=== PATIENT | female | born 1965 | race Caucasian/White ===

== ENCOUNTER 2024-07-13 19:42 | Emergency (ER) | payer OTHER, SELFPAY ==
--- NOTE | 2024-07-13 19:42 | ED_ITS ---
<Statement entered by Dora Quispe DO - 07/13/24 23:37> I was consulted by the TEETEE, and we discussed the complexity of the problems being addressed. I approved the treatment and management plan for this patient's care in the emergency department, thus performing a substantive portion of the medical decision making. Dora Quispe DO Discharge Plan Disposition Patient Disposition: Home, Self-Care Condition: Good Prescriptions Prescriptions: New ketorolac 10 mg tablet 10 mg PO Q8H PRN (Reason: pain) 2 Days Qty: 10 0RF ondansetron 4 mg tablet,disintegrating 4 mg PO QID PRN (Reason: nausea and vomiting) Qty: 10 0RF oxycodone 5 mg tablet 5 mg PO Q8H PRN (Reason: pain) Qty: 12 0RF Activity Restrictions/Add. Instructions Additional Instructions/Restrictions: As we discussed please call your urologist in the morning to establish follow- up. If you have any worsening signs or symptoms return to the emergency department that has interventional urology as we discussed. I have sent prescriptions in to your pharmacy in [place] that will be able to be picked up in the morning. Clinical Impressions Clinical Impression: Ureterolithiasis Instructions Patient Instructions: DI for Kidney Stones Print Language Print Language: Danish Discharge ED Provider: Dora Quispe General Adult HPI <DARLENE Quinn - Last Filed: 07/13/24 21:35> General Chief complaint: Abdominal Pain Stated complaint: abdominal pain Time Seen by Provider: 07/13/24 19:46 History of Present Illness HPI narrative: Patient presents for evaluation of acute right flank pain. Patient has a known history of kidney stones however she was on her way to work this evening and had to order puller twice due to nausea secondary to right flank pain. She was unable to continue her trip and ultimately had to call EMS due to her pain. She denies any fever chills hemoptysis hematochezia melena hematemesis. Patient states that she also has some radiation into the right groin which is very similar to her previous episodes of kidney stones. Up to now today was a normal day she did not have normal tolerance of food and intake. Patient has had normal bowel and urinary Related Data Previous Rx's ?Medication ?Instructions ?Recorded ketorolac 10 mg tablet 10 mg PO Q8H PRN pain 2 days #10 07/13/24 tabs ondansetron 4 mg disintegrating 4 mg PO QID PRN nausea and 07/13/24 tablet vomiting #10 tabs oxycodone 5 mg tablet 5 mg PO Q8H PRN pain #12 tabs 07/13/24 Allergies Allergy/AdvReac Type Severity Reaction Status Date / Time Penicillins Allergy Verified 11/26/23 10:30 PFSH <DARLENE Quinn - Last Filed: 07/13/24 21:35> [facility] Disclaimer: The information contained in this section may have been updated after the patient was seen, as this information can be updated by other users. Social History (Updated 07/13/24 @ 21:35 by DARLENE Quinn) Smoking Status: Never smoker alcohol intake: never current occupational status: employed Travel in the last 8 weeks: None Have you lived/traveled outside [place] in past 30 days?: No Contact w/someone who lives/traveled outside [place] past 30 days?: No Exposure to someone with infectious disease in past 14 days?: No Do you have a fever (greater than 100.4 F or 38 C)?: No Have you tested positive for COVID-19: No Exposed to someone with COVID-19 in past 14 days?: No Do you have a sore throat?: No Do you have a cough?: No Do you have any weakness?: No Do you have any diarrhea?: No Are you experiencing any unusual bleeding?: No Do you have any muscle aches/pain?: No Do you have any abdominal pain?: Yes Are you experiencing loss of taste or smell?: No Other Medical History Have you received the Flu Vaccine for this season: No Have you received the Pneumonia Vaccine: No <DARLENE Quinn - Last Filed: 07/13/24 21:35> ROS Obtained: Yes Systems reviewed as appropriate & no additional complaints except as documented Physical Exam <DARLENE Quinn - Last Filed: 07/13/24 21:35> General General appearance: alert and in no apparent distress Respiratory Respiratory exam: Present normal lung sounds bilaterally Cardiovascular Cardiovascular exam: Present regular rate Neurological Exam Neurological exam: Present alert and oriented X3 Medical Decision Making <DARLENE Quinn - Last Filed: 07/13/24 21:35> Medical Records Medical records reviewed: Yes I reviewed the patient's medical records. Screening: Per USPSTF and CDC recommendations, given the prevalence of disease in our region, it is our hospital?s policy to screen for HIV and viral Hepatitis for all patients aged 18 and over and those with ongoing risk factors. Rakesh Inquiry Pt receiving controlled substance: No Vital Signs: 07/13/24 19:54 07/13/24 21:34 Temperature 97.5 F L 98.2 F Temperature Source Oral Oral Pulse Rate 88 Pulse Rate [Right Brachial] 75 Respiratory Rate 20 20 Blood Pressure 140/70 Blood Pressure [Right Arm] 132/75 Blood Pressure Mean [Right Arm] 94 Blood Pressure Source [Right Arm] Automatic Cuff Blood Pressure Position Sitting Blood Pressure Position [Right Arm] Supine 02 Sat by Pulse Oximetry 96 Oxygen Delivery Method Room Air Room Air Lab Data Lab results reviewed: Yes I reviewed the patient's lab results. Lab Results 07/13/24 19:43: Urine Color Yellow, Urine Appearance Slightly cloudy, Urine pH 6.0, Ur Specific [place] >= 1.030, Urine Protein Negative, Urine Glucose (UA) Negative, Urine Ketones 1+, Urine Blood 3+ A, Urine Nitrate Negative, Urine Bilirubin 1+ A, Urine Urobilinogen 0.2, Ur Leukocyte Esterase Negative, Urine RBC 10-20, Urine WBC 3-5, Ur Squamous Epith Cells None, Urine Bacteria Trace 07/13/24 19:45: WBC 11.4 H, RBC 4.83, Hgb 15.1, Hct 44.7, MCV 92.5, MCH 31.3 H, MCHC 33.8, RDW 13.3, Plt Count 259, MPV 8.5, Neut % (Auto) 77.3, Lymph % (Auto) 16.1, Bracken % (Auto) 5.5, Eos % (Auto) 0.3, Baso % (Auto) 0.9, Neut # (Auto) 8.8 H, Lymph # (Auto) 1.8, Bracken # (Auto) 0.6, Eos # (Auto) 0.0, Baso # (Auto) 0.1, Sodium 138, Potassium 3.7, Chloride 108 H, Carbon Dioxide 26, Anion Gap 7.7, BUN 18 H, Creatinine 0.80, Estimated Creat Clear 73, Estimated GFR 74, Est GFR ( Amer) 89, Glucose 100, Calcium 9.0, Total Bilirubin 0.9, AST 30, ALT 16, Alkaline Phosphatase 77, Total Protein 6.2 L, Albumin 3.8, Globulin 2.4, Albumin/Globulin Ratio 1.6, Lipase 125 07/13/24 19:45 07/13/24 19:45 Orders (Tests/Meds): ED MEDICATIONS Discontinued Medications Generic Name Dose Route Start Last Admin Trade Name Freq PRN Reason Stop Dose Admin Acetaminophen 1,000 mg 07/13/24 19:44 07/13/24 19:58 Acetaminophen 1,000mg/100ml Vial IV 07/13/24 19:45 1,000 mg ONCE ONE Administration Ketorolac Tromethamine 15 mg 07/13/24 19:44 07/13/24 19:58 Ketorolac 30mg/Ml Vial IV 07/13/24 19:45 15 mg ONCE ONE Administration Promethazine HCl 12.5 mg 07/13/24 20:20 07/13/24 20:32 Promethazine Hcl 25mg/Ml 1ml Vial IV 07/13/24 20:21 12.5 mg ONCE ONE Administration Sodium Chloride 25 ml 07/13/24 20:20 07/13/24 20:32 Sodium Chloride 0.9% 25ml Bag IV 07/13/24 20:21 25 ml ONCE ONE Administration ORDERS Category Date Time Status CT abdomen pelvis wo con Stat Cat Scan 07/13/24 19:43 Completed CBC w/Auto Diff [Complete Blood Count Auto Diff] Stat Lab 07/13/24 19:45 Completed CMP [Comprehensive Metabolic Panel] Stat Lab 07/13/24 19:45 Completed HIV (1&2) Antibody Rapid Stat Lab 07/13/24 19:45 Received Hep C Ab with Reflex to RNA Stat Lab 07/13/24 19:45 Received Lipase Stat Lab 07/13/24 19:45 Completed UA [Urinalysis and Microscopic] Stat Lab 07/13/24 19:43 Completed Medical Decision Narrative: In summary patient is a 59-year-old female who presents to the emergency department for evaluation of right flank pain. Patient is hemodynamically upon arrival, afebrile. Physical exam is remarkable for CVA tenderness on the right to percussion negative on the left with tenderness to palpation in the suprapubic area without rebound or guarding or rigidity. Normal bowel sounds.. Differential diagnosis includes obstructing kidney stone versus pyelonephritis versus UTI etc. Initial workup will be conducted with hematologic labs CT scan stone protocol urinalysis.. Initial interventions include Toradol as patient received fluids and Zofran en route via EMS. Initial workup reviewed by me patient has no evidence of urinary tract infection but does have blood, my informal trepidation of her CT scan abdomen pelvis shows significant hydronephrosis on the right with a distal UVJ stone.. Upon repeat evaluation patient reported improvement in her pain after Toradol.. Given this had interactive discussion with the patient and via patient directed discharge she will attempt to go home and contact her urologist in the morning however she has strict return precautions. <Dora Quispe, DO - Last Filed: 07/13/24 23:38> Rakesh Inquiry Pt receiving controlled substance: Yes Rakesh was queried for this patient: Yes Risks and benefits of using a controlled substance: were discussed with pt by me Vital Signs: 07/13/24 19:54 07/13/24 21:34 Temperature 97.5 F L 98.2 F Temperature Source Oral Oral Pulse Rate 88 Pulse Rate [Right Brachial] 75 Respiratory Rate 20 20 Blood Pressure 140/70 Blood Pressure [Right Arm] 132/75 Blood Pressure Mean [Right Arm] 94 Blood Pressure Source [Right Arm] Automatic Cuff Blood Pressure Position Sitting Blood Pressure Position [Right Arm] Supine 02 Sat by Pulse Oximetry 96 Oxygen Delivery Method Room Air Room Air Lab Data Lab Results 07/13/24 19:43: Urine Color Yellow, Urine Appearance Slightly cloudy, Urine pH 6.0, Ur Specific [place] >= 1.030, Urine Protein Negative, Urine Glucose (UA) Negative, Urine Ketones 1+, Urine Blood 3+ A, Urine Nitrate Negative, Urine Bilirubin 1+ A, Urine Urobilinogen 0.2, Ur Leukocyte Esterase Negative, Urine RBC 10-20, Urine WBC 3-5, Ur Squamous Epith Cells None, Urine Bacteria Trace 07/13/24 19:45: WBC 11.4 H, RBC 4.83, Hgb 15.1, Hct 44.7, MCV 92.5, MCH 31.3 H, MCHC 33.8, RDW 13.3, Plt Count 259, MPV 8.5, Neut % (Auto) 77.3, Lymph % (Auto) 16.1, Bracken % (Auto) 5.5, Eos % (Auto) 0.3, Baso % (Auto) 0.9, Neut # (Auto) 8.8 H, Lymph # (Auto) 1.8, Bracken # (Auto) 0.6, Eos # (Auto) 0.0, Baso # (Auto) 0.1, Sodium 138, Potassium 3.7, Chloride 108 H, Carbon Dioxide 26, Anion Gap 7.7, BUN 18 H, Creatinine 0.80, Estimated Creat Clear 73, Estimated GFR 74, Est GFR ( Amer) 89, Glucose 100, Calcium 9.0, Total Bilirubin 0.9, AST 30, ALT 16, Alkaline Phosphatase 77, Total Protein 6.2 L, Albumin 3.8, Globulin 2.4, Albumin/Globulin Ratio 1.6, Lipase 125 Orders (Tests/Meds): ED MEDICATIONS Discontinued Medications Generic Name Dose Route Start Last Admin Trade Name Freq PRN Reason Stop Dose Admin Acetaminophen 1,000 mg 07/13/24 19:44 07/13/24 19:58 Acetaminophen 1,000mg/100ml Vial IV 07/13/24 19:45 1,000 mg ONCE ONE Administration Ketorolac Tromethamine 15 mg 07/13/24 19:44 07/13/24 19:58 Ketorolac 30mg/Ml Vial IV 07/13/24 19:45 15 mg ONCE ONE Administration Promethazine HCl 12.5 mg 07/13/24 20:20 07/13/24 20:32 Promethazine Hcl 25mg/Ml 1ml Vial IV 07/13/24 20:21 12.5 mg ONCE ONE Administration Sodium Chloride 25 ml 07/13/24 20:20 07/13/24 20:32 Sodium Chloride 0.9% 25ml Bag IV 07/13/24 20:21 25 ml ONCE ONE Administration ORDERS Category Date Time Status CT abdomen pelvis wo con Stat Cat Scan 07/13/24 19:43 Completed CBC w/Auto Diff [Complete Blood Count Auto Diff] Stat Lab 07/13/24 19:45 Completed CMP [Comprehensive Metabolic Panel] Stat Lab 07/13/24 19:45 Completed HIV (1&2) Antibody Rapid Stat Lab 07/13/24 19:45 Received Hep C Ab with Reflex to RNA Stat Lab 07/13/24 19:45 Received Lipase Stat Lab 07/13/24 19:45 Completed UA [Urinalysis and Microscopic] Stat Lab 07/13/24 19:43 Completed Critical Care <DARLENE Quinn - Last Filed: 07/13/24 21:35> Critical Care Time Critical Care Time: No
--- NOTE | 2024-07-13 19:43 | CT_ITS ---
PROCEDURE INFORMATION: Exam: CT Abdomen And Pelvis Without Contrast Exam date and time: 07/13/2024 7:54 PM Age: 59 years old Clinical indication: Abdominal pain; Additional info: R flank pain R groin pain h/o previous kidney ston TECHNIQUE: Imaging protocol: Computed tomography of the abdomen and pelvis without contrast. Radiation optimization: All CT scans at this facility use at least one of these dose optimization techniques: automated exposure control; mA and/or kV adjustment per patient size (includes targeted exams where dose is matched to clinical indication); or iterative reconstruction. COMPARISON: No relevant prior studies available. FINDINGS: Liver: Normal. Gallbladder and biliary ducts: No acute process. Pancreas: Normal. Spleen: Normal. Adrenal glands: The adrenal glands appear normal. Kidneys and ureters: There is moderate right hydroureteronephrosis extending to the urinary bladder where there is a 4 mm calculus at the right UVJ (image 92 series 3). There are bilateral nonobstructing intrarenal calculi. Stomach and bowel: There is large volume stool throughout the colon. Appendix: No evidence of appendicitis. Intraperitoneal space: Unremarkable. Vasculature: The abdominal aorta and its major branches appear normal without evidence of aneurysm or stenosis. There are pelvic phleboliths. Lymph nodes: No lymphadenopathy. Urinary bladder: Unremarkable as visualized. Reproductive: No acute process. Bones/joints: Status post right hip arthroplasty with associated streak artifact which limits evaluation of the pelvis. Soft tissues: Unremarkable. IMPRESSION: There is moderate right hydroureteronephrosis extending to the urinary bladder where there is a 4 mm calculus at the right UVJ (image 92 series 3).
[2024-07-13 19:47] LABS: Microscopic, Urine URINE MICROSCOPIC (MICROSCOPIC)
[2024-07-13 19:50] LABS: Blood, Urine 3+ (Negative); Color,Urine YELLOW (Yellow); Glucose,Urine (UA) Negative (Negative); Ketones,Urine 1+ (Negative); Leukocyte Esterase,Urine Negative (Negative); Nitrate,Urine Negative (Negative); Protein,Urine Negative (Negative); Specific Gravity, Urine >= 1.030 (1.005-1.030); Urobilinogen,Urine 0.2 EU/dl (0.2)
[2024-07-13 19:54] VITALS: BP 132/75; PULSE 75; RESP 20; TEMP 36.4; O2SAT 96; BMI 24.9
[2024-07-13] MEDS: KETOROLAC 30MG/ML VIAL 15 MG IV (19:58)
[2024-07-13] MEDS: ACETAMINOPHEN 1,000MG/100ML VIAL 1000 MG IV (19:58)
--- NOTE | 2024-07-13 19:59 | PC.NURSE ---
Pt to CT scan via wheelchair
[2024-07-13 20:31] LABS: Albumin Level 3.8 g/dl (3.5-5.0); Chloride 108 mmol/L (98-107); Potassium 3.7 mmoL/L (3.5-5.1); Sodium 138 mmol/L (136-145)
[2024-07-13 20:32] LABS: Basophils # 0.1 K/mm3 (0-0.2); Basophils % 0.9 % (0.1-2.0); Eosinophils % 0.3 % (0.1-12.0); Hematocrit 44.7 % (37.0-47.0); Hemoglobin 15.1 g/dL (12.2-16.2); Lymphocytes # 1.8 K/mm3 (0.7-4.5); Lymphocytes % 16.1 % (10-50); Mean Corpuscular HGB Conc 33.8 g/dL (31.8-35.4); Mean Corpuscular Hemoglobin 31.3 pg (27.0-31.2); Mean Corpuscular Volume 92.5 fl (81-99); Mean Platelet Volume 8.5 fl (7.4-10.4); Monocytes # 0.6 K/mm3 (0.1-1.0); Monocytes % 5.5 % (1.7-9.3); Neutrophils # 8.8 K/mm3 (1.8-7.8); Neutrophils % 77.3 % (37.0-80.0); Platelet Count 259 K/mm3 (142-424); Red Blood Count 4.83 M/mm3 (4.20-5.40); Red Cell Distribution Width 13.3 % (11.5-17.5); White Blood Count 11.4 K/mm3 (4.8-10.8)
[2024-07-13] MEDS: SODIUM CHLORIDE 0.9% 25ML BAG 25 ML IV (20:32)
[2024-07-13] MEDS: PROMETHAZINE HCL 25MG/ML 1ML VIAL 12.5 MG IV (20:32)
[2024-07-13 20:34] LABS: Alanine Aminotransferase 16 U/L (12-78); Albumin/Globulin Ratio 1.6 (1.1-1.8); Alkaline Phosphatase 77 U/L (38-126); Anion Gap 7.7 mEq/L (5-15); Aspartate Amino Transferase 30 U/L (14-36); Bilirubin,Total 0.9 mg/dl (0.2-1.3); Blood Urea Nitrogen 18 mg/dl (7-17); Carbon Dioxide 26 mmol/L (22.0-30.0); Creatinine Clearance Estimated 73 mL/min (50-200); Estimated Glomerular Filt Rate 74 ml/min (>60); GFR (African American) 89 ML/MIN (>60); Globulin 2.4 g/dL (1.3-3.2); Glucose 100 mg/dl (74-100); Lipase 125 U/L (23-300); Total Protein,Serum 6.2 g/dl (6.3-8.2)
[2024-07-13 20:52] LABS: Appearance,Urine Slightly Cloudy (Clear); Bilirubin,Urine 1+ (Negative)
[2024-07-13 21:34] VITALS: BP 140/70; PULSE 88; RESP 20; TEMP 36.8
[2024-07-13 21:46] LABS: Bacteria,Urine Trace /lpf
[2024-07-15 06:10] LABS: HCV Ab Non Reactive (Non Reactive)
[2024-07-15 10:57] LABS: HIV Combo NEGATIVE (Negative)
== END 2024-07-13 21:38 | disposition home or self-care (01) ==
PROVIDERS: Physician Assistant; Emergency Provider Emergency Medicine; PCP Internal Medicine
DX: N20.1 Calculus of ureter (principal); R10.9 Unspecified abdominal pain; R11.0 Nausea
CPT/HCPCS: 74176; 80053; 81001; 83690; 85025; 86803; 87389; 96374; 96375; 99284; J0131; J1885; J2550